=== PATIENT | female | born 1985 | race Caucasian/White ===

== ENCOUNTER 2018-11-20 12:32 | Emergency (ER) | payer BC ==
[2018-11-20] MEDS ORDERED: SODIUM CHLORIDE 0.9% 1000ML 1,000 ML IVS ONE (12:56)
--- NOTE | 2018-11-20 13:15 | ED.PDOC ---
History of Present Illness - General Chief Complaint: [employer] Problem Stated Complaint: Vaginal bleeding Time Seen by Provider: 11/20/18 12:55 Source: patient - History of Present Illness Initial Comments: C/O HEAVY VAGINAL BLEEDING ONSET TODAY. PT HAD LAP ASSISTED VAG HYST 2 WEEKS AGO FOR ABNORMAL PAP. WAS REPORTEDLY COMPLICATED BY ENDOMETRIOSIS AND TOOK 5 HOURS TO COMPLETE. HAS HAD PERSISTENT BLEEDING SINCE BUT TODAY STARTED WITH HEAVY BLEEDING AND PASSED CLOTS. Timing/Duration: 1 hour Severity: moderate Improving Factors: nothing Worsening Factors: nothing Associated Symptoms: denies symptoms Allergies/Adverse Reactions: Allergies NO KNOWN ALLERGY Allergy (Unverified 09/24/13 10:23) Home Medications: Ambulatory Orders Acetaminophen Arthritis [Tylenol Arthritis] 650 mg PO PRN PRN 09/24/13 Bupropion HCl [Wellbutrin Xl] 300 mg PO AM 09/24/13 Rngivejrcxi-Utiqbclloib-Apwalb [Joint Support Formula] 1 cap PO AM 09/24/13 Multiple Vitamins W/ Minerals [Multi Complete] 1 cap PO AM 09/24/13 Potassium [Chelated Potassium] 95 mg PO AM 09/24/13 Review of Systems - Review of Systems Constitutional: Denies: chills, fever EENTM: States: no symptoms reported Respiratory: Denies: short of breath Cardiology: States: no symptoms reported Gastrointestinal/Abdominal: Denies: abdominal pain, nausea, vomiting Genitourinary: States: other - BRP AND CLOTS. . Denies: dysuria, frequency Musculoskeletal: States: no symptoms reported Skin: States: no symptoms reported Neurological: States: no symptoms reported Endocrine: States: no symptoms reported Hematologic/Lymphatic: States: no symptoms reported Past Medical History (General) - Patient Medical History Hx Stroke: No Hx Congestive Heart Failure: No Hx Diabetes: No Hx MRSA: No Surgical History: appendectomy, Hysterectomy - Vaccination History Hx Influenza Vaccination: Yes - 2018 Hx Pneumococcal Vaccination: No - Social History Hx Tobacco Use: No Family Medical History - Family History Mother Family History: No Known Living Status: Still Living Physical Exam - Physical Exam General Appearance: Alert, No apparent distress Eye Exam: bilateral normal Ears, Nose, Throat: hearing grossly normal, normal ENT inspection Neck: non-tender, full range of motion, supple Respiratory: lungs clear, normal breath sounds Cardiovascular/Chest: regular rate, rhythm, no murmur Gastrointestinal/Abdominal: normal bowel sounds, non tender, soft, no organomegaly Back Exam: normal inspection, no CVA tenderness Extremity: normal range of motion, non-tender Neurologic: alert, normal mood/affect Skin Exam: normal color, warm/dry Lymphatic: no adenopathy Comments: G/U NL EXT GENITALIA, 100CC BRIGHT RED BLOOD IN VAULT WITH CLOTS. REMOVED, CLOT VISUALIZED AT CUFF, NO ACTIVE BLEEDING, BIMANUAL NOT PERFORMED. Progress - Progress Progress: 11/20/18 14:41 HAS PASSED ANOTHER "ORANGE SIZE CLOT". NO DIZZINESS, ABDOMEN MINIMALLY TENDER. NO EXCESSIVE BLEEDING AT THIS TIME. D/W DR TORRES, ADVISED PT COULD COME TO [place], OR GO TO ER AT [facility] AND HE WOULD SEE HER THERE THIS AFTERNOON. PT CHOOSES TO GO TO [facility]. BP 120'S/80'S, PULSE 85. HAVE CONTACTED [facility] FOR TRANSFER. 11/20/18 14:59 D/W DR OWEN ER AT [facility]. ACCEPTS PT IN TRANSFER. Departure - Departure Clinical Impression: Vaginal bleeding ICD-10 Supporting Text: POST OPERATIVE Disposition: Discharge to Home or Self Care Departure Forms: ED Discharge - Pt. Copy, Patient Portal Self Enrollment Referrals: Bruno Torres MD [Primary Care Provider] - 1-2 Weeks Home Medications: Ambulatory Orders Acetaminophen Arthritis [Tylenol Arthritis] 650 mg PO PRN PRN 09/24/13 Bupropion HCl [Wellbutrin Xl] 300 mg PO AM 09/24/13 Krsbzxptpkw-Oiydswfsiii-Niuvsf [Joint Support Formula] 1 cap PO AM 09/24/13 Multiple Vitamins W/ Minerals [Multi Complete] 1 cap PO AM 09/24/13 Potassium [Chelated Potassium] 95 mg PO AM 09/24/13 Transfer to Outside Facility - Transfer Information Accepting Provider:: DR OWEN Accepting Facility: [facility] Reason for Transfer: required specialist not available
[2018-11-20 15:27] VITALS: BP 113/70; TEMP 99.3; O2SAT 94
== END 2018-11-20 15:25 | disposition home or self-care (01) ==
LOC: ER 12:32
DX: N99.820 Postprocedural hemorrhage of a genitourinary system organ or structure following a genitourinary system procedure (principal); Z90.710 Acquired absence of both cervix and uterus
CPT/HCPCS: 80053; 85025; 85610; 85730; J7030

== ENCOUNTER → 2019-04-15 | Outpatient (CLI) | payer BC ==
--- NOTE | 2019-04-15 10:14 | CT ---
EXAM DESCRIPTION: CT ABDOMEN AND PELVIS WITHOUT AND WITH CONTRAST CLINICAL HISTORY: UNSPEC STAPHYLOCOCCUS INFECTION COMPARISON: None Available. TECHNIQUE: CT of the abdomen and pelvis are performed prior to and during IV bolus administration of usual adult dose of nonionic iodinated IV contrast. No oral contrast. FINDINGS: CT abdomen The lung bases are clear of infiltrate. Heart size is normal. Lower breast tissue is dense and symmetrical. Liver is normal in size and parenchymal appearance on the precontrast images. No calcified stones in the gallbladder. Small retroperitoneal cystic lesion below the uncinate process of the pancreas between the aorta and inferior vena cava appears benign and measures 1.7 cm. Spleen, pancreas, and kidneys are otherwise unremarkable. There is no lymphadenopathy, inflammation, or free fluid observed. After IV contrast, small cyst is seen in the right kidney 1.1 cm. Small cystic lesion between aorta and inferior vena cava behind the superior mesenteric vein measures 1.7 cm with small extension superiorly below the uncinate process of the pancreas. This appears benign with CT density 13.6 Hounsfield units. Differential considerations would include lymphatic cyst, low density lymph node, duodenal diverticulum filled with fluid , pancreatic pseudocyst, duodenal duplication cyst or pedunculated pancreatic epithelial cyst. This could be followed up with repeat CT in six months to ensure stability or resolution. Delayed postcontrast images show normal contrast in the urinary collecting systems with no filling defects in the renal pelves. There is positive contrast in the bladder and in the ureters. CT pelvis No inflammation is seen around the cecum or terminal ileum or sigmoid colon. Appendix is surgically absent. No stones are seen in the distal ureters or bladder. Normal pelvic small bowel loops. No fracture or lytic lesion of the osseous structures. Postcontrast images show normal enhancement of the pelvic vessels. Uterus is surgically absent. Ovaries appear normal with physiologic cystic structure in the right ovary consistent with dominant follicle 2.2 cm. Coronal and sagittal reformatted images confirm the findings. IMPRESSION: No acute upper abdominal process. No acute process in the pelvis. Small right renal cyst. Retroperitoneal cyst 1.7 cm appears benign. See above. This exam was performed according to our departmental dose-optimization program, which includes automated exposure control, adjustment of the mA and/or kV according to patient size and/or use of iterative reconstruction technique. Electronically signed by: Caden Prado MD 04/15/2019 10:12 AM CDT
== END ==
LOC: CT 07:59
PROVIDERS: ATTEND Family Medicine
DX: B95.8 Unspecified staphylococcus as the cause of diseases classified elsewhere (principal); N28.1 Cyst of kidney, acquired; K68.9 Other disorders of retroperitoneum

== ENCOUNTER → 2019-06-13 | Outpatient (CLI) | payer BC | LOC: LAB.O 09:26 | PROVIDERS: ATTEND Internal Medicine Infectious Disease | DX: R50.9 Fever, unspecified (principal); M25.50 Pain in unspecified joint ==

== ENCOUNTER → 2020-03-03 | Outpatient (CLI) | payer BC | LOC: GMAM 17:37 | PROVIDERS: ATTEND Family Medicine | DX: M25.50 Pain in unspecified joint (principal); R53.83 Other fatigue; R07.0 Pain in throat; R51 Headache ==

== ENCOUNTER → 2020-11-26 | Outpatient (CLI) | payer BC, OTHER | LOC: GMAM 12:42 | PROVIDERS: ATTEND Family Medicine | DX: M25.50 Pain in unspecified joint (principal); R53.83 Other fatigue ==